=== PATIENT | male | born 1995 | race Hispanic/Latino ===

== ENCOUNTER 2017-11-19 22:11 | Emergency (ER) | payer SELFPAY ==
[2017-11-19 23:14] LABS: Absolute Monocytes 0.6 K/uL (0.1-1.3); Absolute Neutrophil 1.9 K/uL (1.8-8.0); Basophils % 0.9 % (0-1.3); Eosinophils % 3.4 % (0-4.4); Hematocrit 44.1 % (39.6-49.0); MCH 30.9 pg (27.0-35.0); MPV 9.7 fL (7.6-11.3); Monocytes % 8.2 % (3.3-12.3)
[2017-11-19 23:28] LABS: Urine Blood NEGATIVE (NEG); Urine Glucose NEGATIVE (NEG); Urine Protein NEGATIVE (NEG); Urine Specific Gravity >1.030 (1.005-1.030)
[2017-11-19 23:36] LABS: ALT/SGPT 58 U/L (12-78); AST/SGOT 41 U/L (15-37); Albumin 4.1 g/dL (3.4-5.0); Alkaline Phosphatase 83 U/L (45-117); BUN Blood Urea Nitrogen 8 mg/dL (7-18); Bicarbonate 29 mmol/L (21-32); Bilirubin Direct < 0.1 mg/dL (0-0.2); Bilirubin Total 0.2 mg/dL (0.2-1.0); CKMB Creatine Kinase MB < 1.0 ng/mL (0.3-3.6); Creatine Phosphokinase 121 U/L (39-308); Glucose Level 99 mg/dL (74-106); Magnesium 2.1 mg/dL (1.8-2.4); NT PRO-BNP 42 pg/mL (<125); Potassium 3.7 mmol/L (3.5-5.1); Protein, Total 7.6 g/dL (6.4-8.2); Sodium Level 137 mmol/L (136-145)
--- NOTE | 2017-11-19 23:52 | EDPHYS ---
Physician Documentation [facility] Name: Scott Dailey Age: 22 yrs Sex: Male : 1995 Arrival Date: 11/19/2017 Time: 22:12 Bed 26 Private MD: ED Physician Singh Rodriguez HPI: 11/19 23:45 This 22 yrs old Male presents to ER via Ambulatory with complaints of Chest curtis Pain. 23:45 The patient or guardian reports chest pain that is located primarily in the anterior curtis chest wall. The pain does not radiate. Associated signs and symptoms: The patient has no apparent associated signs or symptoms. The chest pain is described as sharp. Duration: The patient or guardian reports a single episode, that is now resolved. Modifying factors: The symptoms are alleviated by nothing. the symptoms are aggravated by nothing. Severity of pain: At its worst the pain was mild in the emergency department the pain has resolved and did so just prior to arrival. The patient has not experienced similar symptoms in the past, but family has similar symptoms. Historical: - Allergies: 22:36 No Known Allergies; aj1 - Home Meds: 22:36 None [Active]; aj1 - PMHx: 22:36 None; aj1 - PSHx: 22:36 None; aj1 - Immunization history:: Flu vaccine is not up to date. - Social history:: Smoking status: Patient/guardian denies using tobacco. - Ebola Screening: : Patient denies travel to an Ebola-affected area in the 21 days before illness onset. - Family history:: not pertinent. ROS: 23:45 Constitutional: Negative for fever, chills, and weight loss, Eyes: Negative for injury, curtis pain, redness, and discharge, ENT: Negative for injury, pain, and discharge, Neck: Negative for injury, pain, and swelling, Respiratory: Negative for shortness of breath, cough, wheezing, and pleuritic chest pain, Abdomen/GI: Negative for abdominal pain, nausea, vomiting, diarrhea, and constipation, Back: Negative for injury and pain, : Negative for injury, bleeding, discharge, and swelling, MS/Extremity: Negative for injury and deformity, Skin: Negative for injury, rash, and discoloration, Neuro: Negative for headache, weakness, numbness, tingling, and seizure, Psych: Negative for depression, anxiety, suicide ideation, homicidal ideation, and hallucinations, Allergy/Immunology: Negative for hives, rash, and allergies, Endocrine: Negative for neck swelling, polydipsia, polyuria, polyphagia, and marked weight changes, Hematologic/Lymphatic: Negative for swollen nodes, abnormal bleeding, and unusual bruising. 23:45 Cardiovascular: Positive for chest pain, of the chest. Exam: 23:45 Constitutional: This is a well developed, well nourished patient who is awake, alert, curtis and in no acute distress. Head/Face: Normocephalic, atraumatic. Eyes: Pupils equal round and reactive to light, extra-ocular motions intact. Lids and lashes normal. Conjunctiva and sclera are non-icteric and not injected. Cornea within normal limits. Periorbital areas with no swelling, redness, or edema. ENT: Nares patent. No nasal discharge, no septal abnormalities noted. Tympanic membranes are normal and external auditory canals are clear. Oropharynx with no redness, swelling, or masses, exudates, or evidence of obstruction, uvula midline. Mucous membranes moist. Neck: Trachea midline, no thyromegaly or masses palpated, and no cervical lymphadenopathy. Supple, full range of motion without nuchal rigidity, or vertebral point tenderness. No Meningismus. Chest/axilla: Normal chest wall appearance and motion. Nontender with no deformity. No lesions are appreciated. Cardiovascular: Regular rate and rhythm with a normal S1 and S2. No gallops, murmurs, or rubs. Normal PMI, no JVD. No pulse deficits. Respiratory: Lungs have equal breath sounds bilaterally, clear to auscultation and percussion. No rales, rhonchi or wheezes noted. No increased work of breathing, no retractions or nasal flaring. Abdomen/GI: Soft, non-tender, with normal bowel sounds. No distension or tympany. No guarding or rebound. No evidence of tenderness throughout. Back: No spinal tenderness. No costovertebral tenderness. Full range of motion. Male : Normal genitalia with no discharge or lesions. Skin: Warm, dry with normal turgor. Normal color with no rashes, no lesions, and no evidence of cellulitis. MS/ Extremity: Pulses equal, no cyanosis. Neurovascular intact. Full, normal range of motion. Neuro: Awake and alert, GCS 15, oriented to person, place, time, and situation. Cranial nerves II-XII grossly intact. Motor strength 5/5 in all extremities. Sensory grossly intact. Cerebellar exam normal. Normal gait. Psych: Awake, alert, with orientation to person, place and time. Behavior, mood, and affect are within normal limits. Vital Signs: 22:36 BP 136 / 79; Pulse 72; Resp 18; Temp 98.4; Pulse Ox 99% on R/A; Weight 77.11 kg (R); aj1 Height 5 ft. 9 in. (175.26 cm) (R); Pain 8/10; 23:17 BP 123 / 79; Pulse 65; Resp 17; Pulse Ox 98% on R/A; kr2 23:52 BP 123 / 79; Pulse 69; Resp 17; Pulse Ox 98% on R/A; kr2 22:36 Body Mass Index 25.10 (77.11 kg, 175.26 cm) aj1 MDM: 22:44 Patient medically screened. [facility] 23:52 Data reviewed: vital signs, nurses notes, lab test result(s), EKG, radiologic studies, curtis plain films. 11/19 22:45 Order name: Basic Metabolic Panel; Complete Time: 23:45 [facility] 11/19 22:45 Order name: CBC with Diff; Complete Time: 23:45 [facility] 11/19 22:45 Order name: Ckmb; Complete Time: 23:45 [facility] 11/19 22:45 Order name: CPK; Complete Time: 23:45 [facility] 11/19 22:45 Order name: LFT's; Complete Time: 23:45 [facility] 11/19 22:45 Order name: Magnesium; Complete Time: 23:45 [facility] 11/19 22:45 Order name: NT PRO-BNP; Complete Time: 23:45 [facility] 11/19 22:45 Order name: Troponin (emerg Dept Use Only); Complete Time: 23:45 [facility] 11/19 22:45 Order name: XRAY Chest (1 view) [facility] 11/19 22:45 Order name: EKG; Complete Time: 22:45 [facility] 11/19 22:45 Order name: Cardiac monitoring; Complete Time: 23:02 [facility] 11/19 22:45 Order name: EKG - Nurse/Tech; Complete Time: 23:02 [facility] 11/19 23:06 Order name: Urine Dipstick--Ancillary (enter results) rg2 11/19 23:06 Order name: Urine Dipstick-Ancillary; Complete Time: 23:45 [facility] 11/19 22:45 Order name: IV Saline Lock; Complete Time: 23:02 [facility] 11/19 22:45 Order name: Labs collected and sent; Complete Time: 23:02 [facility] 11/19 22:45 Order name: O2 Per Protocol; Complete Time: 23:02 [facility] 11/19 22:45 Order name: O2 Sat Monitoring; Complete Time: 23:03 [facility] 11/19 22:45 Order name: Urine Dipstick-Ancillary (obtain specimen); Complete Time: 23:03 [facility] Administered Medications: No medications were administered Disposition: 11/19/17 23:51 Discharged to Home. Impression: Chest pain, unspecified. - Condition is Stable. - Discharge Instructions: Nonspecific Chest Pain, Nonspecific Chest Pain, [id number], Aspirin and Your Heart. - Prescriptions for Pepcid 20 mg Oral Tablet - take 1 tablet by ORAL route every 12 hours for 10 days; 20 tablet. Motrin IB 200 mg Oral Tablet - take 1 tablet by ORAL route every 6 hours As needed as needed with food; 20 tablet. - Medication Reconciliation Form, Thank You Letter, Antibiotic Education, Prescription Opioid Use form. - Follow up: Private Physician; When: 2 - 3 days; Reason: Recheck today's complaints, Continuance of care, Re-evaluation by your physician. Follow up: Santosh Anand MD; When: 2 - 3 days; Reason: Recheck today's complaints, Re-evaluation by your physician. - Problem is new. - Symptoms have improved. Signatures: Dispatcher [employer] [facility] Luba Zapata RN RN aj1 Singh Rodriguez MD MD cha Reaves, Karey, RN RN kr2 Corrections: (The following items were deleted from the chart) 23:51 23:51 11/19/2017 23:51 Discharged to Home. Impression: Chest pain, unspecified. [facility] Condition is Stable. Forms are Medication Reconciliation Form, Thank You Letter, Antibiotic Education, Prescription Opioid Use. Follow up: Private Physician; When: 2 - 3 days; Reason: Recheck today's complaints, Continuance of care, Re-evaluation by your physician. Problem is new. Symptoms have improved. [facility] 11/20 00:00 11/19 23:51 11/19/2017 23:51 Discharged to Home. Impression: Chest pain, unspecified. kr2 Condition is Stable. Forms are Medication Reconciliation Form, Thank You Letter, Antibiotic Education, Prescription Opioid Use. Follow up: Private Physician; When: 2 - 3 days; Reason: Recheck today's complaints, Continuance of care, Re-evaluation by your physician. Follow up: Santosh Anand; When: 2 - 3 days; Reason: Recheck today's complaints, Re-evaluation by your physician. Problem is new. Symptoms have improved. curtis
--- NOTE | 2017-11-19 23:52 | ER ---
Nurse's Notes [facility] Name: Scott Dailey Age: 22 yrs Sex: Male : 1995 Arrival Date: 11/19/2017 Time: 22:12 Bed 26 Private MD: Diagnosis: Chest pain, unspecified Presentation: 11/19 22:33 Presenting complaint: Patient states: "I've been having some chest pains. I've had them aj1 before but they've never last this long. Its a heavy pain that goes from the center of my chest into my back." Denies palpitations, SOB, syncope, N/V, cough, congestion, fever. Transition of care: patient was not received from another setting of care. Onset of symptoms was November 18, 2017. Risk Assessment: Do you want to hurt yourself or someone else? Patient reports no desire to harm self or others. Initial Sepsis Screen: Does the patient meet any 2 criteria? No. Patient's initial sepsis screen is negative. Does the patient have a suspected source of infection? No. Patient's initial sepsis screen is negative. Care prior to arrival: None. 22:33 Method Of Arrival: Ambulatory aj1 22:33 Acuity: TIFFANIE 3 aj1 Triage Assessment: 22:36 General: Appears in no apparent distress. comfortable, Behavior is calm, cooperative, aj1 appropriate for age. Pain: Complains of pain in mid-sternal area Pain radiates to back Pain currently is 8 out of 10 on a pain scale. Neuro: Level of Consciousness is awake, alert, obeys commands, Speech is normal, Facial symmetry appears normal. Cardiovascular: Reports chest pain, Denies palpitations, shortness of breath, syncope, vomiting, Patient's skin is warm and dry. Respiratory: Airway is patent Respiratory effort is even, unlabored, Respiratory pattern is regular, symmetrical. Historical: - Allergies: 22:36 No Known Allergies; aj1 - Home Meds: 22:36 None [Active]; aj1 - PMHx: 22:36 None; aj1 - PSHx: 22:36 None; aj1 - Immunization history:: Flu vaccine is not up to date. - Social history:: Smoking status: Patient/guardian denies using tobacco. - Ebola Screening: : Patient denies travel to an Ebola-affected area in the 21 days before illness onset. - Family history:: not pertinent. Screenin:16 Abuse screen: Denies threats or abuse. Denies injuries from another. Nutritional kr2 screening: No deficits noted. Tuberculosis screening: No symptoms or risk factors identified. Fall Risk None identified. Assessment: 22:45 General: Appears in no apparent distress. comfortable, well groomed, well developed, kr2 well nourished, Behavior is calm, cooperative, appropriate for age. Pain: Complains of pain in mid-sternal area Pain radiates to anterior aspect of left upper chest and left breast Pain currently is 0 out of 10 on a pain scale. at worst was 8 out of 10 on a pain scale. Quality of pain is described as pressure, shooting, Is intermittent, Alleviated by rest, Aggravated by increased activity. Pain: Pain began 2-3 days ago. Neuro: Level of Consciousness is awake, alert, obeys commands, Oriented to person, place, time, situation, Appropriate for age. Cardiovascular: Capillary refill < 3 seconds in bilateral fingers Patient's skin is warm and dry. Respiratory: Airway is patent Respiratory effort is even, unlabored, Respiratory pattern is regular, symmetrical. GI: Abdomen is flat, non-distended. : No signs and/or symptoms were reported regarding the genitourinary system. EENT: Oral mucosa is moist. Derm: Skin is intact, is healthy with good turgor, Skin is clammy, Skin is pink, Skin temperature is warm. Musculoskeletal: Circulation, motion, and sensation intact. Range of motion: intact in all extremities. Vital Signs: 22:36 BP 136 / 79; Pulse 72; Resp 18; Temp 98.4; Pulse Ox 99% on R/A; Weight 77.11 kg (R); aj1 Height 5 ft. 9 in. (175.26 cm) (R); Pain 8/10; 23:17 BP 123 / 79; Pulse 65; Resp 17; Pulse Ox 98% on R/A; kr2 23:52 BP 123 / 79; Pulse 69; Resp 17; Pulse Ox 98% on R/A; kr2 22:36 Body Mass Index 25.10 (77.11 kg, 175.26 cm) aj1 ED Course: 22:12 Patient arrived in ED. al2 22:36 Triage completed. aj1 22:38 Arm band placed on Patient placed in an exam room. aj1 22:42 Brenda Pollard, RN is Primary Nurse. kr2 22:43 Singh Rodriguez MD is Attending Physician. [facility] 22:55 Urine collected: clean catch specimen, clear, EKG done, by ED staff, reviewed by Singh Rodriguez MD. Inserted saline lock: 20 gauge in right antecubital area, using aseptic technique. Blood collected. Patient maintains SpO2 saturation greater than 95% on room air. 23:07 XRAY Chest (1 view) In Process Unspecified. EDMS 23:16 Patient has correct armband on for positive identification. Bed in low position. Call kr2 light in reach. Side rails up X 1. Adult w/ patient. hall monitor on. Pulse ox on. NIBP on. Door closed. Head of bed elevated. 23:51 Santosh Anand MD is Referral Physician. [facility] 11/20 00:00 No provider procedures requiring assistance completed. IV discontinued, intact, kr2 bleeding controlled, No redness/swelling at site. Pressure dressing applied. Administered Medications: No medications were administered Outcome: 11/19 23:51 Discharge ordered by . [facility] 11/20 00:00 Discharged to home ambulatory, with family. kr2 Condition: good Discharge instructions given to patient, family, Instructed on discharge instructions, follow up and referral plans. medication usage, Demonstrated understanding of instructions, follow-up care, medications, Prescriptions given X 2. 00:00 Patient left the ED. kr2 Signatures: Dispatcher [employer] EDNM Luba Zapata RN RN aj1 Anderson, Corey, MD MD cha Reaves, Karey, TUSHAR RN janice2 Juana Ellis2 Corrections: (The following items were deleted from the chart) 11/19 23:50 23:16 Pain: Pain began kr2 kr2
--- NOTE | 2017-11-20 08:11 | RAD REPORT ---
EXAM DESCRIPTION: Carie Single View11/19/2017 11:07 pm CLINICAL HISTORY: Chest pain COMPARISON: none FINDINGS: The lungs appear clear of acute infiltrate. The heart is normal size IMPRESSION: No acute abnormalities displayed
--- NOTE | 2017-11-20 09:10 | EKG ---
Test Date: 2017-11-19 Test Time: 22:52:00 Sword Swallower: MEASUREMENT RESULTS: Intervals: Rate: 65 FL: 124 QRSD: 84 QT: 364 QTc: 378 [place]: P: 61 FL: 124 QRS: 85 T: 58 INTERPRETIVE STATEMENTS: Normal sinus rhythm Normal ECG No previous ECG available for comparison Electronically Signed On 11-20-17 09:09:44 CDT by Santosh Anand
== END 2017-11-20 | disposition home or self-care (01) ==
LOC: ER 22:11
DX: R07.9 Chest pain, unspecified (principal)
CPT/HCPCS: 36415; 71045; 80048; 80076; 81003; 82550; 82553; 83735; 83880; 84484; 85025; 93005; 99285

== ENCOUNTER 2018-08-08 20:03 | Emergency (ER) | payer SELFPAY ==
--- NOTE | 2018-08-08 23:43 | ER ---
Nurse's Notes [facility] Name: Scott Dailey Age: 23 yrs Sex: Male : 1995 Arrival Date: 08/08/2018 Time: 20:07 Bed 18 Private MD: Diagnosis: Sprain of ankle Presentation: 08/08 20:08 Presenting complaint: Patient states: Was walking down concrete steps and missed a lp1 step, rolling left ankle; Painful when attempting to bear weight. Transition of care: patient was not received from another setting of care. Onset of symptoms was August 08, 2018 at 19:00. Risk Assessment: Do you want to hurt yourself or someone else? Patient reports no desire to harm self or others. Initial Sepsis Screen: Does the patient meet any 2 criteria? No. Patient's initial sepsis screen is negative. Does the patient have a suspected source of infection? No. Patient's initial sepsis screen is negative. Care prior to arrival: None. 20:08 Method Of Arrival: Wheelchair lp1 20:08 Acuity: TIFFANIE 4 lp1 Historical: - Allergies: 20:10 No Known Allergies; lp1 - Home Meds: 20:10 None [Active]; lp1 - PMHx: 20:10 None; lp1 - PSHx: 20:10 None; lp1 - Immunization history:: Adult Immunizations up to date. - Social history:: Smoking status: Patient/guardian denies using tobacco. - Ebola Screening: : No symptoms or risks identified at this time. Screenin:10 Abuse screen: Denies threats or abuse. Denies injuries from another. Nutritional lp1 screening: No deficits noted. Tuberculosis screening: No symptoms or risk factors identified. Fall Risk None identified. Assessment: 22:41 General: Appears in no apparent distress. uncomfortable, Behavior is calm, cooperative, jb4 appropriate for age. Pain: Complains of pain in left foot Pain does not radiate. Pain currently is 0 out of 10 on a pain scale. at worst was 9 out of 10 on a pain scale. Quality of pain is described as stabbing, throbbing. Neuro: Level of Consciousness is awake, alert, obeys commands, Oriented to person, place, time, situation. Cardiovascular: Patient's skin is warm and dry. Respiratory: Airway is patent Respiratory effort is even, unlabored, Respiratory pattern is regular, symmetrical. GI: No signs and/or symptoms were reported involving the gastrointestinal system. : No signs and/or symptoms were reported regarding the genitourinary system. EENT: No signs and/or symptoms were reported regarding the EENT system. Derm: Skin is intact, Skin is pink, warm \T\ dry. Musculoskeletal: Circulation, motion, and sensation intact. Range of motion: intact in all extremities, Swelling present in left lateral ankle and left medial ankle. 08/09 00:00 Reassessment: Patient appears in no apparent distress at this time. Patient and/or jb4 family updated on plan of care and expected duration. Pain level reassessed. Patient is alert, oriented x 3, equal unlabored respirations, skin warm/dry/pink. Vital Signs: 08/08 20:10 BP 132 / 80; Pulse 88; Resp 16; Temp 99; Pulse Ox 99% on R/A; Weight 74.84 kg; Height 5 lp1 ft. 9 in. (175.26 cm); Pain 8/10; 22:41 BP 112 / 99; Pulse 76; Resp 16; Pulse Ox 100% on R/A; jb4 23:15 BP 113 / 83; Pulse 81; Resp 16; Pulse Ox 100% on R/A; jb4 20:10 Body Mass Index 24.37 (74.84 kg, 175.26 cm) lp1 ED Course: 20:07 Patient arrived in ED. es 20:10 Triage completed. lp1 20:10 Arm band placed on right wrist. lp1 22:30 Bull Damico [facility]. jmm 22:30 Kendall Isidro MD is Attending Physician. jmm 22:40 Patient has correct armband on for positive identification. Bed in low position. Call jb4 light in reach. Side rails up X 1. Pulse ox on. NIBP on. 22:41 Lul Blount, TUSHAR is Primary Nurse. jb4 22:50 Ankle Left 3 View XRAY In Process Unspecified. EDMS 23:42 Cristian Handley MD is Referral Physician. [facility] 08/09 00:03 No provider procedures requiring assistance completed. Patient did not have IV access jb4 during this emergency room visit. 00:03 Crutch training done. Cedric wrap to left ankle. jb4 Administered Medications: 08/08 23:56 Drug: Motrin 800 mg Route: PO; jb4 08/09 00:04 Follow up: Response: No adverse reaction; Medication administered at discharge. jb4 Outcome: 08/08 23:42 Discharge ordered by MD. gomez 08/09 00:03 Discharged to home ambulatory. jb4 Condition: stable Discharge instructions given to patient, Instructed on discharge instructions, follow up and referral plans. medication usage, Demonstrated understanding of instructions, follow-up care, medications, Prescriptions given X 1. 00:05 Patient left the ED. jb4 Signatures: Dispatcher [employer] EDMS Bull Damico PA PA jmm Salyer, Edna es Pena, Laura, RN RN lp1 Lul Blount, RN RN jb4
--- NOTE | 2018-08-08 23:43 | EDPHYS ---
Physician Documentation [facility] Name: Scott Dailey Age: 23 yrs Sex: Male : 1995 Arrival Date: 08/08/2018 Time: 20:07 Bed 18 Private MD: ED Physician Kendall Isidro HPI: 08/08 22:59 This 23 yrs old Male presents to ER via Wheelchair with complaints of Ankle jmm Injury. 22:59 Onset: The symptoms/episode began/occurred acutely. jmm 22:59 Associated signs and symptoms: Pertinent positives: swelling. jmm 22:59 This is a 23 year old male with no chronic medical conditions that presents to the ED jmm with complaints of left ankle pain after mis stepping earlier today. patient states he twisted his ankle. patient denies other injury. . Historical: - Allergies: 20:10 No Known Allergies; lp1 - Home Meds: 20:10 None [Active]; lp1 - PMHx: 20:10 None; lp1 - PSHx: 20:10 None; lp1 - Immunization history:: Adult Immunizations up to date. - Social history:: Smoking status: Patient/guardian denies using tobacco. - Ebola Screening: : No symptoms or risks identified at this time. ROS: 22:59 Constitutional: Negative for fever, chills, and weight loss. jmm 22:59 MS/extremity: Positive for injury or acute deformity, pain. 22:59 All other systems are negative. Exam: 22:59 Constitutional: This is a well developed, well nourished patient who is awake, alert, jmm and in no acute distress. Head/Face: atraumatic. Eyes: EOMI, no conjunctival erythema appreciated ENT: Moist Mucus Membranes Neck: Trachea midline, Supple Chest/axilla: Normal chest wall appearance and motion. Cardiovascular: Regular rate and rhythm. No edema appreciated Respiratory: Normal respirations, no respiratory distress appreciated Back: Normal ROM Skin: General appearance color normal 22:59 Musculoskeletal/extremity: no bony tenderness is appreciated to the left foot and ankle, full dorsalis pedis pulse, compartments are soft, NVI, pain is elicited on dorsiflexion and plantar flexion, NVI. 22:59 Skin: Appearance: Color: normal in color. 22:59 Neuro: Orientation: is normal, Mentation: is normal, Memory: is normal. 22:59 Psych: Behavior/mood is pleasant, cooperative. Vital Signs: 20:10 BP 132 / 80; Pulse 88; Resp 16; Temp 99; Pulse Ox 99% on R/A; Weight 74.84 kg; Height 5 lp1 ft. 9 in. (175.26 cm); Pain 8/10; 22:41 BP 112 / 99; Pulse 76; Resp 16; Pulse Ox 100% on R/A; jb4 23:15 BP 113 / 83; Pulse 81; Resp 16; Pulse Ox 100% on R/A; jb4 20:10 Body Mass Index 24.37 (74.84 kg, 175.26 cm) lp1 MDM: 22:59 Patient medically screened. [facility] 23:42 Data reviewed: vital signs, nurses notes. Counseling: I had a detailed discussion with [facility] the patient and/or guardian regarding: the historical points, exam findings, and any diagnostic results supporting the discharge/admit diagnosis, radiology results, the need for outpatient follow up, to return to the emergency department if symptoms worsen or persist or if there are any questions or concerns that arise at home. 23:42 Data interpreted: Pulse oximetry: on room air is 100 %. Interpretation: normal. [facility] 08/08 20:11 Order name: Ankle Left 3 View XRAY lp1 08/08 23:20 Order name: Cedric wrap-joint; Complete Time: 23:[address] [facility] 08/08 23:20 Order name: Crutches; Complete Time: 23:[address] [facility] Administered Medications: 23:56 Drug: Motrin 800 mg Route: PO; [facility] 08/09 00:04 Follow up: Response: No adverse reaction; Medication administered at discharge. [facility] Disposition: 05:16 Co-signature as Attending Physician, Kendall Isidro MD. Disposition: 08/08/18 23:42 Discharged to Home. Impression: Sprain of ankle. - Condition is Stable. - Discharge Instructions: Ankle Sprain. - Prescriptions for Ibuprofen 800 mg Oral Tablet - take 1 tablet by ORAL route every 8 hours As needed take with food; 30 tablet. - Medication Reconciliation Form, Thank You Letter, Antibiotic Education, Prescription Opioid Use form. - Follow up: Cristian Handley MD; When: As needed; Reason: Recheck today's complaints, Continuance of care, Re-evaluation by your physician. - Notes: Please follow up with orthopedics. You may need to repeat xray if you continue to have pain after 1 week. Signatures: Dispatcher [employer] EDMS Bull Damico PA PA jmm Pena, Laura, RN RN lp1 Lul Blount RN RN jb4 Kendall Isidro MD MD gs Corrections: (The following items were deleted from the chart) 00:05 08/08 23:42 08/08/2018 23:42 Discharged to Home. Impression: Sprain of ankle. Condition jb4 is Stable. Forms are Medication Reconciliation Form, Thank You Letter, Antibiotic Education, Prescription Opioid Use. Follow up: Cristian Handley; When: As needed; Reason: Recheck today's complaints, Continuance of care, Re-evaluation by your physician. patricia
[2018-08-09] MEDS ORDERED: IBUPROFEN 400 MG TAB ONE (00:04)
--- NOTE | 2018-08-09 08:15 | RAD REPORT ---
EXAM DESCRIPTION: RAD - Ankle Left 3 View -08/08/2018 10:49 pm CLINICAL HISTORY: Left ankle pain status post injury FINDINGS: No fracture or dislocation is seen.
== END 2018-08-09 00:05 | disposition home or self-care (01) ==
LOC: ER 20:03
DX: S93.402A Sprain of unspecified ligament of left ankle, initial encounter (principal); X50.1XXA Overexertion from prolonged static or awkward postures, initial encounter
CPT/HCPCS: 99284